=== PATIENT | female | born 1995 | race Caucasian/White ===

== ENCOUNTER 2021-11-11 08:00 | Outpatient (CLI) | payer BC ==
--- NOTE | 2021-11-11 12:28 | XRAY Report ---
PROCEDURE: Knee 4 View RT INDICATIONS: KNEE PAIN TECHNIQUE: 4 views of the right knee(s) were acquired. COMPARISON: None. FINDINGS: Bones: No fractures or dislocations. No suspicious bony lesions. Soft tissues: No joint effusion. No suspicious soft tissue calcifications. IMPRESSION: No acute finding, significant degenerative changes, or other pain generating abnormality identified. Reviewed by: Sabas Roldan MD on 11/11/2021 12:27 PM PDT Approved by: Sabas Roldan MD on 11/11/2021 12:27 PM PDT Station ID: [id number]
== END 2021-11-11 23:59 | disposition home or self-care (01) ==
LOC: DI.WOS 08:00
PROVIDERS: ATTEND Physician Assistant
DX: M25.561 Pain in right knee (principal)